=== PATIENT | female | born 1935 | race Caucasian/White ===

== ENCOUNTER 2017-05-28 10:51 | Inpatient (IN) ==
[2017-05-28] MEDS ORDERED: NS FLUSH BAG 500ml IV PRN (12:52)
[2017-05-28] MEDS: CEFTRIAXONE 1 G in NS 100 ML IV SCH (13:36)
[2017-05-28] MEDS: SALINE FLUSH 10ml SYRINGE IVF PRN (13:37)
--- OUTSIDE RECORDS SUMMARY | 2017-05-28 14:09 | External Medical Summary | Summary of Care ---
:1935 Author Name Jody Ward Address [address] Unavailable [place], [place] [id number] Care Team Providers Name Role Phone Amy Trinidad M.D. Unavailable Unavailable Jody Ward Unavailable Unavailable Eb Casillas M.D. Unavailable Unavailable Catalina Chand Unavailable Unavailable Unavailable Unavailable Unavailable Functional Status Functional Status Health Issues Name Dates Details Functional status health issues are not documented Status: Cognitive Status Health Issues Name Dates Details Cognitive status health issues are not documented Status: Problems Name Dates Details Osteoarthritis (715.90, M19.90) Status: Active Migraine headache (346.90, G43.909) Status: Active Essential hypertension (401.9, I10) Status: Active Lichen sclerosus et atrophicus (701.0, L90.0) Status: Active Allergic rhinitis (477.9, J30.9) Status: Active History of Desensitization to allergens (V07.1, Z51.89) Status: Resolved 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 Refills: 0 Trinidad M.D., Amy Start Active Fluticasone Propionate 50 MCG/ACT Nasal Suspension two (2)spray(s) into EACH nostrilin the evening Quantity: 1 Refills: 11 Trinidad M.D., Amy Start Active 16 GM Bottle Epidrin 325-65-100 MG CAPS TAKE DIRECTED. Refills: 0 Trinidad M.D., Amy Start Active Vitamins/Minerals Oral Tablet IRON, BETA CAROTENE, B-6, CALCIUM AND VITAMIN D Refills: 0 Trinidad M.D., Amy Start Active Gabapentin 100 MG Oral Capsule TAKE 1 CAPSULE 3 TIMES DAILY. Refills: 0 Amy Trinidad M.D. Start 03-Jul-2011 Active Senokot 8.6 MG Oral Tablet TAKE DIRECTED. Refills: 0 Amy Trinidad M.D. Start 03-Jul-2011 Active Pepcid 20 MG Oral Tablet TAKE 1 TABLET DAILY AT BEDTIME. Refills: 0 Amy Trinidad M.D. Start 03-Jul-2011 Active Ibuprofen TABS equate 500mg Refills: 0 Active Calcium + D 600-200 MG-UNIT TABS Refills: 0 Start 01-May-2012 Active Carvedilol 12.5 MG Oral Tablet Refills: 0 Start 01-May-2012 Active Clobetasol Propionate 0.05 % External Cream APPLY THIN LAYER TO AFFECTED AREAS TWICE DAILY Quantity: 1 Refills: 2 Danny Casillas M.D. Start 01-May-2012 Active 60 GM Tube First-Testosterone 2 % Transdermal Ointment Apply sparingly to affected area twice a day Quantity: 60 Refills: 0 Danny Casillas M.D. Start 17-Jul-2012 Active Omeprazole 40 MG Oral Capsule Delayed Release Refills: 0 Active Potassimin TABS Refills: 0 Active RaNITidine HCl TABS Refills: 0 Active Refresh SOLN Refills: 0 Active Advil 200 MG Oral Capsule Refills: 0 Start 31-Dec-2013 Active Minocycline HCl - 100 MG Oral Capsule Refills: 0 Start 31-Dec-2013 Active Pravastatin Sodium 20 MG Oral Tablet Refills: 0 Start 31-Dec-2013 Active B-6 100 MG Oral Tablet Refills: 0 Start 31-Dec-2013 Active Refresh Optive Sensitive 0.5-0.9 % Ophthalmic Solution Refills: 0 Start 31-Dec-2013 Active Olopatadine HCl - 0.6 % Nasal Solution 2 sprays each nostril twice a day- as needed. Quantity: 1 Refills: 5 Amy Trinidad M.D. Start 23-Jun-2015 Active 30.5 GM Bottle Clobetasol Propionate 0.05 % External Cream APPLY SPARINGLY TO AFFECTED AREA(S) TWICE DAILY Quantity: 1 Refills: 4 Lina P.Jody Garrett Start 11-Apr-2016 Active 30 GM Tube Hydrocortisone 1 % External Cream APPLY SPARINGLY TO AFFECTED AREA(S) ON FACE 1-2 TIMES DAILY NEEDED Quantity: 1 Refills: 3 Lina Leyva, Jody Start 11-Apr-2016 Active 15 GM Tube Allergies and Adverse Reactions Name Dates Details Ciprofloxacin HCl TABS (Allergy) Status: Active Iodine Solution SOLN (Allergy) Status: Active MetroNIDAZOLE CAPS (Allergy) Status: Active Quinine Derivatives (Allergy) Status: Active Zithromax PACK (Allergy) Status: Active Past Medical History Name Dates Details History of Breast neoplasm (239.3, D49.3) Status: Resolved History of Cough (786.2, R05) Status: Resolved History of Desensitization to allergens (V07.1, Z51.89) Status: Resolved Procedures Procedure Dates Details History of Hysterectomy Procedures not documented Immunization Name Dates Details Immunizations not documented Social History Name Dates Details - Status: Smoking Status Name Dates Details Former smoker Vital Signs Date Test Result Details No Known Vitals to report Results Date Description Value Details Results not documented Plan of Care Name Dates Details Planned Observations Planned Goals not documented Interventions Provided Medication ChangesClobetasol Propionate 0.05 % External Cream - Renew Instructions Name Dates Details Instructions not documented Encounters Appointment; Jody Mills P.A. On 11-Apr-2016 Encounter Diagnosis: Problem not documented 09:45 Appointment; Amy Trinidad M.D. On 20-May-2015 Encounter Diagnosis: Problem not documented 10:00
--- NOTE | 2017-05-28 14:13 | History & Physical Report ---
<Milena Love - Last Filed: 05/28/17 15:42> History of Present Illness Date: 05/28/17 Chief complaint: fever, abdominal pain, UTI HPI: Patient is an 82 y.o. female who is accepted as a direct admission from [facility] for fever, UTI, abdominal pain and weakness. She has had dysuria, dizziness and constipation over the past few weeks. Her symptoms worsened over the weekend with fever of 100.0 at home. Her labs in the office revealed elevated WBC and urine consistent with infection. She reports she was able to have a small BM last night and the night before she had wateryl, incontinent stools which resulted after using laxatives. She still has some abdominal pain . KUB xrays from 05/23 and 05/24 revealed no evidence of SBO. She was also running lower BP's when seen last week so her HCTZ has been held. She reports she is having more swelling in her feet. She currently states she is still having some abdominal "soreness" but it is better than it has been. She doesn't have much of an appetite. Notes she has dysuria and urinary frequency. Review of Systems All systems PM: 10-point ROS was reviewed, no additional remarkable complaints except - Constitutional Constitutional: Present: anorexia, fatigue, fever(s), headache(s) (yesterday - none today) - EENMT Eyes: Present: other (blind in R eye) - Gastrointestinal Gastrointestinal: Present: abdominal pain, constipation, nausea Gastrointestinal Comments: irritated hemorrhoids with bleeding due to recent constipation and diarrhea from laxatives. - Musculoskeletal Musculoskeletal: Present: back pain (L sided) - Neurological Neurological: Present: dizziness, weakness PFSH Medical History Breast cancer, Right breast - (lumpectomy 1994 followed by chemo) Rosacea, unspecified GERD without esophagitis OAB (overactive bladder) Vasculitis limited to skin Vaginal atrophy Colon polyps Migraine headache Hypertension Osteoarthritis Seborrheic dermatitis Traumatic blindness of right eye Surgical History: Hysterectomy 1980. R breast lumpectomy 1994. Colon polyps 2010. 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 Medications Home Medications Medication Instructions Recorded Confirmed Type Azelastine HCl 1 spray EA NOSTRIL HS #0 03/28/14 05/28/17 History Carvedilol 12.5 mg PO BIDWM #0 03/28/14 05/28/17 History Pyridoxine HCl (Vitamin B6) 100 mg PO DAILY #0 10/23/14 05/28/17 History [Vitamin B-6] Calcium 250 + D [Os Edward + D] 2 tab PO TID 04/07/17 05/28/17 History Clobetasol 0.05% Cream [TEMOVATE 1 applic TOP BID PRN 04/07/17 05/28/17 History Cream] Estradiol [Estrace] 1 applic VAGINAL 2XW 04/07/17 05/28/17 History Famotidine [Pepcid AC] 10 mg PO BID 04/07/17 05/28/17 History Fish Oil/Dha/Epa [Fish Oil 1,200 1,200 mg PO BIDWM 04/07/17 05/28/17 History mg Fish Oil] Hydrocortisone 1% Cream 1 applic TOP HS PRN 04/07/17 05/28/17 History [Cortizone-10 Cream] Lactobacillus Acidophilus 1 tab PO NOON 04/07/17 05/28/17 History [Probiotic Acidophilus] Minocycline [Minocin] 100 mg PO BID PRN 04/07/17 05/28/17 History Montelukast [Singulair] 10 mg PO HS 04/07/17 05/28/17 History Multivitamin [One Daily] 1 tab PO DAILY 04/07/17 05/28/17 History Omeprazole 40 mg PO ACB PRN 04/07/17 05/28/17 History Ondansetron Odt [Zofran Po] 4 mg PO Q4-6HR PRN 04/07/17 05/28/17 History Oxybutynin Chloride 5 mg PO DAILY 04/07/17 05/28/17 History Polyvinyl Alcohol/Povidone O/S 1 drop EACH EYE BID 04/07/17 05/28/17 History [Refresh Classic] Vit A/Vit C/Vit E/Zinc/Copper 1 tab PO BID 04/07/17 05/28/17 History [Preservision Areds Tablet] Advil (Ibuprofen) 200 mg tablet 200 mg PO BID PRN #0 tab 05/23/17 05/28/17 History Allergies Allergy/AdvReac Type Severity Reaction Status Date / Time azithromycin Allergy Unknown Verified 05/28/17 12:26 ciprofloxacin Allergy Unknown Verified 05/28/17 12:26 Iodinated Contrast- Oral and Allergy Unknown Verified 05/28/17 12:26 IV Dye metronidazole Allergy Unknown Verified 05/28/17 12:26 quinine Allergy Unknown Verified 05/28/17 12:26 Exam Vital Signs: Temperature 98.0 F 05/28/17 12:02 Pulse Rate 87 05/28/17 12:02 Respiratory Rate 20 05/28/17 12:02 Blood Pressure 161/80 H 05/28/17 12:02 Pulse Oximetry 96 05/28/17 12:02 Height/Weight/BMI: Height 1.73 m Weight 68 kg Body Mass Index 22.8 - Constitutional Present: no acute distress, well nourished, well developed, cooperative - Routine HEENT Exam Head: Present: normocephalic, atraumatic Eye: Absent: PERRL (R eye with scarring secondary to childhood inury) ENT: Present: mucous membranes moist. Absent: dentition normal (edentulous) - Routine Neck Exam Present: supple. Absent: thyromegaly - Routine Respiratory Exam Present: CTA bilaterally. Absent: wheezes - Routine Cardiovascular Exam Present: RRR, S1, S2, murmur (Grade 1) - Routine Abdominal Exam Present: soft, normoactive bowel sounds, tenderness (suprapubic and L lateral abdomen moderately tender, mild diffuse tenderness), non distended. Absent: guarding, rigid Comments: rotund - Routine Extremities Exam Present: edema, normal capillary refill - Routine Skin Exam Present: dry, warm - Routine Neurological Exam Present: alert, oriented X3, CN II-XII intact - Routine Psychiatric Exam Present: normal affect Results - Labs CBC & Chem 7: 05/28/17 13:01 05/28/17 13:01 Labs: Laboratory Tests 05/28/17 05/28/17 13:01 13:01 AST 37 H ALT 55 H Plasma Lactate 1.1 Procalcitonin 0.14 Laboratory Tests 05/28/17 13:06 Urine Clarity Sl cloudy Urine pH 8.0 Ur Specific [place] 1.015 Urine Protein 2+ A Urine Glucose (UA) Negative Urine Ketones Negative Urine Occult Blood 2+ A Urine Nitrate Negative Urine Bilirubin Negative Urine Urobilinogen 0.2 Ur Leukocyte Esterase 3+ A Urine RBC 1-3 Urine WBC Tntc H Urine WBC Clumps Many H Ur Squamous Epith Cells 0-5 Urine Bacteria 2+ H Microbiology Results: Microbiology 05/28/17 13:06 Urine, Voided (Cc/notcc) Urine Culture - Preliminary Culture Initiated - Results Pending 05/28/17 13:01 Peripheral/Iv Start Blood Culture - Preliminary Culture Initiated - Results Pending 05/28/17 13:06 Peripheral/Iv Start Blood Culture - Preliminary Culture Initiated - Results Pending - Imaging and Cardiology KUB xray Additional comments: 05/28 mild colonic gas and stool with a nonobstructive bowel gas pattern 05/24- nonobstructive nonspecific bowel gas pattern. Moderate stool in colon. Assessment and Plan (1) Pyelonephritis Current visit: Yes Status: Acute DVT Prophylaxis: SCD's GI Prophylaxis: Pepcid, other (omeprazole - pt's home med) Resuscitation Status: Do Not Resuscitate Assessment and Plan: Impression Pyelonephritis vs febrile cystitis Leukocytosis Hypokalemia Vasculitis - on prednisone 2.5mg qd. Mild transaminitis Hemorrhoids/anal irritation Constipation with abdominal pain - no evidence of SBO at this time Breast cancer, Right breast - (lumpectomy 1994 followed by chemo) Rosacea, unspecified GERD without esophagitis OAB (overactive bladder) Vaginal atrophy Colon polyps Migraine headache Hypertension Osteoarthritis Seborrheic dermatitis Traumatic blindness of right eye Plan Admit to observation under hospitalist service, Dr. Burnett attending. CBC, CMP, lactate, procalcitonin,UA and culture, blood culture x 2. CT renal stone protocol to r/o nephro/ureterolithiasis Rocephin 1 gm IV q 24 hours for infection - await urine C&S results and adjust antibiotic therapy as needed IVF's for hydration and maintenance and to replace potassium. Morphine IV PRN pain and Zofran 4mg PRN nausea Potassium x 1 for hypokalemia. Repeat BMP in am. Anusol for hemorrhoidal irritation. MOM PRN, daily Miralax and senna for bowel motivation Follow BP's. HCTZ is on hold. Hold statin given elevated liver enzymes. Continue regular home meds for chronic health problems. SCD's for DVT prophylaxis. Pt requests DNR code status. Care to return to [facility] on discharge. Hospital Course Summary Disclaimer: The visit summary below is not to be considered part of the above Progress Note. Hospital Course: 05/28/17 15:59 Impression Pyelonephritis vs febrile cystitis Leukocytosis Hypokalemia Vasculitis - on prednisone 2.5mg qd. Mild transaminitis Hemorrhoids/anal irritation Constipation with abdominal pain - no evidence of SBO at this time Breast cancer, Right breast - (lumpectomy 1994 followed by chemo) Rosacea, unspecified GERD without esophagitis OAB (overactive bladder) Vaginal atrophy Colon polyps Migraine headache Hypertension Osteoarthritis Seborrheic dermatitis Traumatic blindness of right eye Plan Admit to observation under hospitalist service, Dr. Burnett attending. CBC, CMP, lactate, procalcitonin,UA and culture, blood culture x 2. CT renal stone protocol to r/o nephro/ureterolithiasis Rocephin 1 gm IV q 24 hours for infection - await urine C&S results and adjust antibiotic therapy as needed IVF's for hydration and maintenance and to replace potassium. Morphine IV PRN pain and Zofran 4mg PRN nausea Potassium x 1 for hypokalemia. Repeat BMP in am. Anusol for hemorrhoidal irritation. MOM PRN, daily Miralax and senna for bowel motivation Follow BP's. HCTZ is on hold. Hold statin given elevated liver enzymes. Continue regular home meds for chronic health problems. SCD's for DVT prophylaxis. Pt requests DNR code status. Care to return to [facility] on discharge. <Clari Burnett - Last Filed: 05/28/17 17:54> History of Present Illness Date: 05/28/17 [facility] Patient Stated Medical History Migraine Yes Cataracts Yes: LEFT CAT. REMOVAL Other HEENT Yes: UNABLE TO SEE OUT OF RIGHT EYE Hypertension Yes Pneumonia Yes Sleep Apnea No Gastroesophageal Reflux Yes Disease Other GI Yes: colon polyps Hx Urinary Tract Infection Yes Other Yes: overactive bladder Osteoarthritis Yes Shingles Yes Post Menopausal Yes Clinic Medical History (Last Updated 04/25/17 @ 08:41 by PETRA Lincoln) Rosacea, unspecified (Chronic Medical) GERD without esophagitis (Chronic Medical) OAB (overactive bladder) (Chronic Medical) Vasculitis limited to skin (Chronic Medical) Vaginal atrophy (Chronic Medical) Rhinitis (Chronic Medical) Colon polyps (Chronic Medical) Hx of onychomycosis (Chronic Medical) Profound, moderate or severe vision impairment, not further specified (Chronic Medical) Right eye blind Migraine headache (Chronic Medical) Hypertension (Chronic Medical) Osteoarthritis (Chronic Medical) Seborrheic dermatitis (Chronic Medical) Traumatic blindness of right eye (Chronic Medical) Family History: Family History (Last Updated 04/25/17 @ 08:43 by PETRA Lincoln) Father , age 67 brain tumor Brain tumor Mother , age 83 [place] Myocardial infarction Sister Hypertension Sister , 76 Pneumonia Exam Vital Signs: Temperature 98.0 F 05/28/17 12:02 Pulse Rate 87 05/28/17 12:02 Respiratory Rate 20 05/28/17 12:02 Blood Pressure 161/80 H 05/28/17 12:02 Pulse Oximetry 96 05/28/17 12:02 Height/Weight/BMI: Height 1.73 m Weight 68 kg Body Mass Index 22.8 Results - Labs CBC & Chem 7: 05/28/17 13:01 05/28/17 13:01 Microbiology Results: Microbiology 05/28/17 13:06 Urine, Voided (Cc/notcc) Urine Culture - Preliminary Culture Initiated - Results Pending 05/28/17 13:01 Peripheral/Iv Start Blood Culture - Preliminary Culture Initiated - Results Pending 05/28/17 13:06 Peripheral/Iv Start Blood Culture - Preliminary Culture Initiated - Results Pending Assessment and Plan (1) Pyelonephritis Current visit: Yes Status: Acute Assessment and Plan: 05/28/2017-I reviewed this chart, the patient history, and the [employer]'s/PA's documented findings as above. We discussed and formulated the assessment and plan as above with the additions below.-Dr. Burnett The patient was seen today accompanied by her . She states she's felt poorly for about a week or 2. She complains of pain in the middle of her back and complains of abdominal pain. She also complains of nausea and some mild headache. Appetite has been poor. She denies any shortness of breath or chest pain. She was recently treated for constipation but was not feeling any better. On exam she is alert and in no acute distress. She's had trauma to the right eye in the remote past. Oropharynx is moist. Neck is supple. Chest is clear to auscultation. Cardiovascular reveals a regular rate and rhythm without murmur S3 or S4. Abdomen is soft and mildly protuberant. Bowel sounds are normoactive. She has mild distention with mild tympany in the upper abdomen. She has tenderness over her bladder and in the left mid to lower abdomen. Back exam reveals CVA tenderness on the left. Extremities are free of edema. Lab was reviewed above which appears to show UTI and elevated white count. CT renal shows no stones. There is some questionable left mild perinephric stranding, possibly related to pyelonephritis. KUB done today as an outpatient prior to admission showed mild colonic gas and stool with a nonobstructive bowel gas pattern. On my read, she still appears to have at least a moderate amount of stool. Impression UTI/left pyelonephritis Constipation Nausea Hypertension History of vasculitis on chronic steroids Mild hypokalemia Plan Rocephin 1 g IV daily for UTI/pyelonephritis. Await urine and blood cultures. MiraLAX for constipation. Check for rectal impaction. Anti-emetics as needed. Monitor blood pressure closely, vitals every 4 hours. Hospital Course Summary Disclaimer: The visit summary below is not to be considered part of the above Progress Note.
[2017-05-28] MEDS ORDERED: KCL IV SCH (14:15)
[2017-05-28] MEDS ORDERED: NS IV SCH (14:15)
[2017-05-28] MEDS ORDERED: POTASSIUM CHLORIDE IV SCH (14:15)
[2017-05-28] MEDS: NS with KCL 20 mEq 1,000 ML IV SCH (14:33)
[2017-05-28] MEDS ORDERED: MORPHINE SULFATE 2mg INJECTION IVP PRN (15:12)
[2017-05-28] MEDS ORDERED: OMEPRAZOLE 40 MG PO PRN (15:42)
[2017-05-28] MEDS ORDERED: ASPIRIN PO PRN (15:42)
[2017-05-28] MEDS ORDERED: CAFFEINE PO PRN (15:42)
[2017-05-28] MEDS ORDERED: IBUPROFEN 200 MG TABLET PO PRN (15:42)
[2017-05-28] MEDS ORDERED: MINOCYCLINE 100 MG PO PRN (15:42)
[2017-05-28] MEDS ORDERED: BUTALBITAL PO PRN (15:42)
[2017-05-28] MEDS ORDERED: ONDANSETRON 4 MG PO PRN (15:42)
[2017-05-28] MEDS ORDERED: CLOBETASOL 0.05% TOP PRN (15:42)
[2017-05-28] MEDS ORDERED: HYDROCORTISONE 1% CREAM 28.35gm TOP PRN (15:42)
--- NOTE | 2017-05-28 16:09 | CT Scan Report ---
EXAM: CT renal wo con (stone marisa) DATE: 05/28/2017 12:00 AM ENCOUNTER: Initial INDICATION: pyelonephritis, L flank/abd pain -evaluate for stone COMPARISON: 06/07/2015 TECHNIQUE: Noncontrast axial CT images were obtained of the abdomen and pelvis. Coronal and sagittal reformatted images were performed. The current CT scan was performed using radiation dose-reduction techniques. FINDINGS: Lower Chest: The visualized portions of the lower lungs are aerated. No focal airspace disease. The heart is normal in size without pericardial effusion. Abdomen: No intraperitoneal free air. No intra-abdominal free fluid or fluid collections. No lymphadenopathy. Liver: The noncontrast liver demonstrates homogeneous attenuation without focal masses. Gallbladder and biliary: The gallbladder appears grossly normal. No biliary ductal dilatation. Spleen: The noncontrast spleen appears grossly normal. Pancreas: The pancreas demonstrates homogeneous attenuation. Adrenal glands: The adrenal glands are normal in size and attenuation. Kidneys/ureters: Mild asymmetric prominence of the left renal collecting system, pelvis, and ureter without renal or ureteral stones identified. Suggestion of mild left perinephric/periureteral stranding. The noncontrast kidneys appear otherwise grossly normal. The right ureter is normal in course and caliber. GI tract: Small hiatal hernia. The stomach appears otherwise normal. The small bowel and colon appear grossly normal. The appendix is normal in caliber. Vascular structures: The aorta is normal in course and caliber with aortoiliac atherosclerotic calcifications noted. Pelvis: No pelvic free fluid. No pelvic lymphadenopathy. Bladder: The bladder appears normal. Genital system: The uterus is surgically absent. No adnexal masses seen. Skeletal Structures and Soft Tissues: No acute osseous or soft tissue abnormality identified. Degenerative spondylosis of the visualized spine. Impression: 1. No renal or ureteral stones identified. 2. There is suggestion of mild asymmetric prominence of the left renal collecting system, pelvis, and ureter with mild left perinephric/periureteral stranding noted raising consideration for ascending urinary tract infection, although pyelonephritis cannot be determined by CT without intravenous contrast. .
[2017-05-28] MEDS: HYDROCODONE/APAP 5mg/325mg TABLET PO PRN ×2 (17:53→23:50)
[2017-05-28] MEDS: ONDANSETRON 4 MG/2 ML INJECTION IVP PRN (17:54)
[2017-05-28] MEDS: HYDROCORTISONE 2.5% CREAM 30gm TOP SCH ×3 (18:26→22:14)
[2017-05-28] MEDS: (Fish Oil/Dha/Epa [Fish Oil 1,200 Mg Fish Oil] PO SCH (18:27)
[2017-05-28] MEDS: CARVEDILOL 12.5 MG PO SCH (18:27)
[2017-05-28] MEDS: VIT D PO SCH (20:09)
[2017-05-28] MEDS: CALCIUM PO SCH (20:09)
[2017-05-28] MEDS: REFRESH CLASSIC Eye Drops 0.4ml EACH EYE SCH (20:11)
[2017-05-28] MEDS: FAMOTIDINE 10 MG PO SCH (20:11)
[2017-05-28] MEDS: POLYETHYL GLYCOL 3350 17gm PACKET PO SCH (20:12)
[2017-05-28] MEDS: BISACODYL 10 MG SUPPOSITORY RECTALLY SCH (20:12)
[2017-05-28] MEDS ORDERED: MONTELUKAST 10 MG PO SCH (21:00)
[2017-05-28] MEDS ORDERED: AMLODIPINE 10 MG PO SCH (21:00)
[2017-05-28] MEDS ORDERED: AZELASTINE 0.1% EA NOSTRIL SCH (21:00)
[2017-05-29] MEDS: NS with KCL 20 mEq 1,000 ML IV SCH ×2 (01:15→14:44)
[2017-05-29] MEDS: HYDROCODONE/APAP 5mg/325mg TABLET PO PRN ×2 (05:57→19:34)
[2017-05-29 07:22] VITALS: BMI 22.6
[2017-05-29] MEDS ORDERED: PREDNISONE 5 MG PO SCH (08:00)
[2017-05-29] MEDS: CARVEDILOL 12.5 MG PO SCH (08:38)
[2017-05-29] MEDS: (Fish Oil/Dha/Epa [Fish Oil 1,200 Mg Fish Oil] PO SCH (08:39)
[2017-05-29] MEDS: FAMOTIDINE 10 MG PO SCH (08:40)
[2017-05-29] MEDS: VIT D PO SCH ×2 (08:40→15:26)
[2017-05-29] MEDS: CALCIUM PO SCH ×2 (08:40→15:26)
[2017-05-29] MEDS: POLYETHYL GLYCOL 3350 17gm PACKET PO SCH ×3 (08:41→21:31)
[2017-05-29] MEDS: REFRESH CLASSIC Eye Drops 0.4ml EACH EYE SCH ×2 (08:41→21:35)
[2017-05-29] MEDS ORDERED: PYRIDOXINE 100 MG PO SCH (09:00)
[2017-05-29] MEDS ORDERED: OXYBUTYNIN IR 5 MG PO SCH (09:00)
[2017-05-29] MEDS ORDERED: PredniSONE 2.5 MG TABLET PO SCH (09:00)
[2017-05-29] MEDS ORDERED: NON-FORMULARY MEDICATION 1 EACH EACH (Oxybutynin Chloride [Oxybutynin Chloride] 5 MG) PO SCH (09:00)
[2017-05-29] MEDS: SALINE FLUSH 10ml SYRINGE IVF PRN (09:22)
[2017-05-29] MEDS: BISACODYL 10 MG SUPPOSITORY RECTALLY SCH ×3 (09:22→21:30)
[2017-05-29] MEDS: HYDROCORTISONE 2.5% CREAM 30gm TOP SCH ×3 (11:09→21:31)
[2017-05-29] MEDS: CEFTRIAXONE 1 G in NS 100 ML IV SCH (12:31)
[2017-05-29] MEDS: LACTOBACILLUS (15B cfu) CAPSULE PO SCH (13:00)
[2017-05-29] MEDS ORDERED: MINOCYCLINE 100 MG CAPSULE PO PRN (15:59)
[2017-05-29] MEDS ORDERED: OMEPRAZOLE 40 MG PO PRN (16:07)
[2017-05-29] MEDS ORDERED: ONDANSETRON ODT 4 MG TABLET PO PRN (16:09)
--- NOTE | 2017-05-29 17:06 | Progress Note ---
Subjective: Patient is seen today accompanied by her . She states overall she is feeling a little better. Appetite has improved. She has had some small hard bowel movements but still feels constipated. She still has dysuria, but states it's better. She denies any chest pain or shortness of breath. She denies any abdominal pain. Objective Vital signs: Temperature 97.5 F 05/29/17 15:28 Pulse Rate 65 05/29/17 15:28 Respiratory Rate 18 05/29/17 15:28 Blood Pressure 124/69 05/29/17 15:28 Pulse Oximetry 96 05/29/17 15:28 Height/Weight/BMI: Height 1.73 m Weight 68.3 kg Body Mass Index 22.6 Comments: The patient had hypoxia with O2 sat of 89% on room air. She is now off of supplemental oxygen. GEN-alert, oriented, no acute distress CV-regular rate and rhythm CHEST-clear to auscultation bilaterally Back-no CVA tenderness on the left or the right ABD-soft, nontender, mildly distended, mildly tympanitic, normal bowel sounds -no Le EXT-no edema NEURO-no focal deficits SKIN-warm and dry and without rashes Results - Labs CBC & Chem 7: 05/29/17 06:19 05/29/17 05:24 Labs: Bands 6, neutrophils 46 Microbiology Results: Microbiology 05/28/17 13:01 Peripheral/Iv Start Blood Culture - Preliminary No Growth After 1 Day 05/28/17 13:06 Peripheral/Iv Start Blood Culture - Preliminary No Growth After 1 Day 05/28/17 13:06 Urine, Voided (Cc/notcc) Urine Culture - Preliminary Escherichia coli Assessment and Plan (1) Pyelonephritis Current visit: Yes Status: Acute Assessment and Plan: 05/29/2017 Impression UTI/left pyelonephritis-CVA tenderness is gone today Leukocytosis has resolved Constipation Nausea-improved Hypertension -well controlled Hypoxia-improved History of vasculitis on chronic steroids Mild hypokalemia-improved Plan Currently on day 2 of Rocephin. Escherichia coli in urine. Sensitivities pending. Blood cultures negative after 24 hours. Recheck CBC and basic metabolic profile tomorrow. Await urine culture results. Increase MiraLAX for constipation. Continue Dulcolax suppositories Change to inpatient status secondary to hypoxemia and urinary tract infection with pyelonephritis. Hospital Course Summary Disclaimer: The visit summary below is not to be considered part of the above Progress Note. Hospital Course: 05/28/17 15:59 Impression Pyelonephritis vs febrile cystitis Leukocytosis Hypokalemia Vasculitis - on prednisone 2.5mg qd. Mild transaminitis Hemorrhoids/anal irritation Constipation with abdominal pain - no evidence of SBO at this time Breast cancer, Right breast - (lumpectomy 1994 followed by chemo) Rosacea, unspecified GERD without esophagitis OAB (overactive bladder) Vaginal atrophy Colon polyps Migraine headache Hypertension Osteoarthritis Seborrheic dermatitis Traumatic blindness of right eye Plan Admit to observation under hospitalist service, Dr. Burnett attending. CBC, CMP, lactate, procalcitonin,UA and culture, blood culture x 2. CT renal stone protocol to r/o nephro/ureterolithiasis Rocephin 1 gm IV q 24 hours for infection - await urine C&S results and adjust antibiotic therapy as needed IVF's for hydration and maintenance and to replace potassium. Morphine IV PRN pain and Zofran 4mg PRN nausea Potassium x 1 for hypokalemia. Repeat BMP in am. Anusol for hemorrhoidal irritation. MOM PRN, daily Miralax and senna for bowel motivation Follow BP's. HCTZ is on hold. Hold statin given elevated liver enzymes. Continue regular home meds for chronic health problems. SCD's for DVT prophylaxis. Pt requests DNR code status. Care to return to Madie Sampson APRN on discharge. 05/28/2017-I reviewed this chart, the patient history, and the [employer]'s/PA's documented findings as above. We discussed and formulated the assessment and plan as above with the additions below.-Dr. Burnett The patient was seen today accompanied by her . She states she's felt poorly for about a week or 2. She complains of pain in the middle of her back and complains of abdominal pain. She also complains of nausea and some mild headache. Appetite has been poor. She denies any shortness of breath or chest pain. She was recently treated for constipation but was not feeling any better. On exam she is alert and in no acute distress. She's had trauma to the right eye in the remote past. Oropharynx is moist. Neck is supple. Chest is clear to auscultation. Cardiovascular reveals a regular rate and rhythm without murmur S3 or S4. Abdomen is soft and mildly protuberant. Bowel sounds are normoactive. She has mild distention with mild tympany in the upper abdomen. She has tenderness over her bladder and in the left mid to lower abdomen. Back exam reveals CVA tenderness on the left. Extremities are free of edema. Lab was reviewed above which appears to show UTI and elevated white count. CT renal shows no stones. There is some questionable left mild perinephric stranding, possibly related to pyelonephritis. KUB done today as an outpatient prior to admission showed mild colonic gas and stool with a nonobstructive bowel gas pattern. On my read, she still appears to have at least a moderate amount of stool. Impression UTI/left pyelonephritis Constipation Nausea Hypertension History of vasculitis on chronic steroids Mild hypokalemia Plan Rocephin 1 g IV daily for UTI/pyelonephritis. Await urine and blood cultures. MiraLAX for constipation. Check for rectal impaction. Anti-emetics as needed. Monitor blood pressure closely, vitals every 4 hours.
[2017-05-29] MEDS: CARVEDILOL 12.5 MG TABLET PO SCH (17:19)
[2017-05-29] MEDS: OMEGA-3 ACID ESTERS 1 GM CAPSULE PO SCH (17:19)
[2017-05-29] MEDS ORDERED: ESTRADIOL 0.01% VAGINAL SCH (21:00)
[2017-05-29] MEDS ORDERED: AMLODIPINE 10 MG TABLET PO SCH (21:00)
[2017-05-29] MEDS ORDERED: ESTRADIOL 0.01% VAGINAL CREAM 42.5gm VAGINAL SCH (21:00)
[2017-05-29] MEDS: AZELASTINE 0.1% NASAL SPRAY EA NOSTRIL SCH (21:26)
[2017-05-29] MEDS: CALCIUM 250 + VIT D 125 TABLET PO SCH (21:26)
[2017-05-29] MEDS: FAMOTIDINE 20 MG TABLET PO SCH (21:26)
[2017-05-29] MEDS: AMLODIPINE 10 MG TABLET PO SCH (21:30)
[2017-05-29] MEDS: MONTELUKAST 10 MG TABLET PO SCH (21:30)
[2017-05-30] MEDS: HYDROCODONE/APAP 5mg/325mg TABLET PO PRN ×2 (05:26→21:15)
[2017-05-30] MEDS: ONDANSETRON 4 MG/2 ML INJECTION IVP PRN (08:51)
[2017-05-30] MEDS ORDERED: PROCHLORPERAZINE 10 MG/2 ML INJECTION IVP PRN (10:10)
[2017-05-30] MEDS: CARVEDILOL 12.5 MG TABLET PO SCH ×2 (11:44→18:38)
[2017-05-30] MEDS: PredniSONE 5 MG TABLET PO SCH (11:44)
[2017-05-30] MEDS: OMEGA-3 ACID ESTERS 1 GM CAPSULE PO SCH ×2 (11:44→18:38)
[2017-05-30] MEDS: BISACODYL 10 MG SUPPOSITORY RECTALLY SCH ×3 (11:45→21:16)
[2017-05-30] MEDS: CALCIUM 250 + VIT D 125 TABLET PO SCH ×3 (11:45→21:06)
[2017-05-30] MEDS: HYDROCORTISONE 2.5% CREAM 30gm TOP SCH ×3 (11:46→21:17)
[2017-05-30] MEDS: FAMOTIDINE 20 MG TABLET PO SCH ×2 (11:46→21:06)
[2017-05-30] MEDS: PYRIDOXINE 100mg TABLET PO SCH (11:47)
[2017-05-30] MEDS: REFRESH CLASSIC Eye Drops 0.4ml EACH EYE SCH ×2 (11:47→21:06)
[2017-05-30] MEDS: POLYETHYL GLYCOL 3350 17gm PACKET PO SCH ×3 (11:47→21:07)
[2017-05-30] MEDS: LACTOBACILLUS (15B cfu) CAPSULE PO SCH (11:48)
[2017-05-30] MEDS: SALINE FLUSH 10ml SYRINGE IVF PRN (13:08)
[2017-05-30] MEDS: CEFTRIAXONE 1 G in NS 100 ML IV SCH (13:08)
--- NOTE | 2017-05-30 14:35 | Progress Note ---
Subjective: F/U: UTI/Pyelonephritis with Ecoli Rough morning-felt very full and nauseated to abdomen. Oral drive decreased, no able to get medications in. Feels stools slow-some output, but still very constipated. Notes f/c off and on. Still having flank pain. Strength decreased. Is breathing well-not feeling SOA or congested. Objective Vital signs: Temperature 97.3 F 05/30/17 12:00 Pulse Rate 67 05/30/17 12:00 Respiratory Rate 18 05/30/17 12:00 Blood Pressure 131/70 05/30/17 12:00 Pulse Oximetry 97 05/30/17 12:00 Height/Weight/BMI: Height 1.73 m Weight 68.5 kg Body Mass Index 22.6 - Constitutional Present: well nourished, well developed, cooperative - Routine HEENT Exam Head: Present: normocephalic, atraumatic Eye: Absent: PERRL (Blind in right eye ), conjunctival icterus ENT: Present: mucous membranes moist - Routine Respiratory Exam Present: CTA bilaterally. Absent: rales, respiratory distress, rhonchi, wheezes - Routine Cardiovascular Exam Present: RRR, no murmur - Routine Abdominal Exam Present: soft, non tender, distended. Absent: normoactive bowel sounds, guarding - Routine Extremities Exam Present: no edema. Absent: cyanosis, clubbing Comments: SCD in place - Routine Musculoskeletal Exam Musculoskeletal: Present: no clubbing or cyanosis - Routine Skin Exam Present: dry, warm - Routine Neurological Exam Present: alert, oriented X3, CN II-XII intact, moving all extremities, vision grossly intact, hearing grossly intact. Absent: motor deficit - Routine Psychiatric Exam Present: normal affect, normal thought process, cooperative Results - Labs CBC & Chem 7: 05/30/17 04:41 05/30/17 04:41 Microbiology Results: Microbiology 05/28/17 13:01 Peripheral/Iv Start Blood Culture - Preliminary No Growth After 2 Days 05/28/17 13:06 Peripheral/Iv Start Blood Culture - Preliminary No Growth After 2 Days 05/28/17 13:06 Urine, Voided (Cc/notcc) Urine Culture - Final Escherichia coli Assessment and Plan (1) Pyelonephritis Current visit: Yes Status: Acute DVT Prophylaxis: SCD's Resuscitation Status: Do Not Resuscitate Assessment and Plan: Impression UTI/left pyelonephritis secondary to Ecoli Leukocytosis (POA) Constipation Nausea Hypertension -well controlled Hypoxia-improved Elevated liver enzymes History of vasculitis on chronic steroids Hypokalemia (POA) - improved Osteoarthritis GERD without esophagitis OAB (overactive bladder) Plan Continue Rocephin for urinary coverage of Ecoli - day #3. Consult PT/OT to help improve functional status. Compazine added for nausea. Continue with bowel motivation. Add routine Senna plus at night and prn MOM. Time spent with patient care 25 minutes. Hospital Course Summary Disclaimer: The visit summary below is not to be considered part of the above Progress Note. Hospital Course: 05/28/17 Impression Pyelonephritis vs febrile cystitis Leukocytosis Hypokalemia Vasculitis - on prednisone 2.5mg qd. Mild transaminitis Hemorrhoids/anal irritation Constipation with abdominal pain - no evidence of SBO at this time Breast cancer, Right breast - (lumpectomy 1994 followed by chemo) Rosacea, unspecified GERD without esophagitis OAB (overactive bladder) Vaginal atrophy Colon polyps Migraine headache Hypertension Osteoarthritis Seborrheic dermatitis Traumatic blindness of right eye Plan Admit to observation under hospitalist service, Dr. Burnett attending. CBC, CMP, lactate, procalcitonin,UA and culture, blood culture x 2. CT renal stone protocol to r/o nephro/ureterolithiasis Rocephin 1 gm IV q 24 hours for infection - await urine C&S results and adjust antibiotic therapy as needed IVF's for hydration and maintenance and to replace potassium. Morphine IV PRN pain and Zofran 4mg PRN nausea Potassium x 1 for hypokalemia. Repeat BMP in am. Anusol for hemorrhoidal irritation. MOM PRN, daily Miralax and senna for bowel motivation Follow BP's. HCTZ is on hold. Hold statin given elevated liver enzymes. Continue regular home meds for chronic health problems. SCD's for DVT prophylaxis. Pt requests DNR code status. Care to return to Madie Sampson APRN on discharge. 05/29/17 Currently on day 2 of Rocephin. Escherichia coli in urine. Sensitivities pending. Blood cultures negative after 24 hours. Recheck CBC and basic metabolic profile tomorrow. Await urine culture results. Increase MiraLAX for constipation. Continue Dulcolax suppositories Change to inpatient status secondary to hypoxemia and urinary tract infection with pyelonephritis. 05/30/17 Continue Rocephin for urinary coverage of Ecoli - Day #3. Consult PT/OT to help improve functional status. Compazine added for nausea. Continue with bowel motivation. Add routine Senna plus at night and prn MOM.
[2017-05-30] MEDS: MONTELUKAST 10 MG TABLET PO SCH (21:06)
[2017-05-30] MEDS: SENNA + DOCUSATE TABLET PO SCH (21:06)
[2017-05-30] MEDS: CLOBETASOL 0.05% CREAM 15gm TOP PRN (21:07)
[2017-05-30] MEDS: AZELASTINE 0.1% NASAL SPRAY EA NOSTRIL SCH (21:07)
[2017-05-30] MEDS: AMLODIPINE 10 MG TABLET PO SCH (21:07)
[2017-05-31] MEDS: SALINE FLUSH 10ml SYRINGE IVF PRN ×2 (04:35→21:23)
[2017-05-31] MEDS: REFRESH CLASSIC Eye Drops 0.4ml EACH EYE SCH ×2 (09:04→21:14)
[2017-05-31] MEDS: OMEGA-3 ACID ESTERS 1 GM CAPSULE PO SCH ×2 (09:04→17:56)
[2017-05-31] MEDS: PYRIDOXINE 100mg TABLET PO SCH (09:04)
[2017-05-31] MEDS: CALCIUM 250 + VIT D 125 TABLET PO SCH ×3 (09:04→21:10)
[2017-05-31] MEDS: PredniSONE 5 MG TABLET PO SCH (09:05)
[2017-05-31] MEDS: BISACODYL 10 MG SUPPOSITORY RECTALLY SCH (09:05)
[2017-05-31] MEDS: FAMOTIDINE 20 MG TABLET PO SCH ×2 (09:05→21:13)
[2017-05-31] MEDS: CARVEDILOL 12.5 MG TABLET PO SCH ×2 (09:05→17:56)
[2017-05-31] MEDS: POLYETHYL GLYCOL 3350 17gm PACKET PO SCH ×3 (09:06→21:14)
[2017-05-31] MEDS: HYDROCORTISONE 2.5% CREAM 30gm TOP SCH ×3 (09:07→21:15)
--- NOTE | 2017-05-31 10:56 | Progress Note ---
Subjective: F/U: UTI/Pyelonephritis with Ecoli Better morning today-not feeling the nausea like yesterday. Bowels are starting to move. Noted slight ab pain. Breathing well-no congestion or SOA. No chest pressure or pain. Worked with therapy today and felt she did well. Objective Vital signs: Temperature 98.1 F 05/31/17 08:15 Pulse Rate 87 05/31/17 08:15 Respiratory Rate 16 05/31/17 08:15 Blood Pressure 133/77 05/31/17 08:15 Pulse Oximetry 95 05/31/17 08:49 Height/Weight/BMI: Height 1.73 m Weight 68.5 kg Body Mass Index 22.6 - Constitutional Present: well nourished, well developed - Routine HEENT Exam Head: Present: normocephalic, atraumatic Eye: Present: EOMI ENT: Present: mucous membranes moist - Routine Respiratory Exam Present: CTA bilaterally. Absent: respiratory distress, rhonchi, wheezes - Routine Cardiovascular Exam Present: RRR, no murmur - Routine Abdominal Exam Present: soft, normoactive bowel sounds, non tender, distended (Less distended than yesterday ). Absent: rebound, guarding - Routine Extremities Exam Present: no edema. Absent: cyanosis, clubbing Comments: SCD in place - Routine Musculoskeletal Exam Musculoskeletal: Present: no clubbing or cyanosis, normal strength - Routine Skin Exam Present: intact, dry, warm - Routine Neurological Exam Present: alert, oriented X3, CN II-XII intact, moving all extremities, hearing grossly intact. Absent: motor deficit - Routine Psychiatric Exam Present: normal affect, normal thought process, cooperative. Absent: anxious, agitated Results - Labs CBC & Chem 7: 05/31/17 04:06 05/31/17 04:06 Microbiology Results: Microbiology 05/28/17 13:01 Peripheral/Iv Start Blood Culture - Preliminary No Growth After 2 Days 05/28/17 13:06 Peripheral/Iv Start Blood Culture - Preliminary No Growth After 2 Days 05/28/17 13:06 Urine, Voided (Cc/notcc) Urine Culture - Final Escherichia coli Assessment and Plan (1) Pyelonephritis Current visit: Yes Status: Acute DVT Prophylaxis: SCD's Resuscitation Status: Do Not Resuscitate Assessment and Plan: Impression UTI/left pyelonephritis secondary to Ecoli Leukocytosis (POA) Constipation Nausea Hypertension -well controlled Hypoxia-improved Elevated liver enzymes History of vasculitis on chronic steroids Hypokalemia (POA) - improved Osteoarthritis GERD without esophagitis OAB (overactive bladder) Plan Continue Rocephin for urinary coverage of Ecoli - day #4. Did well with therapy - will have nursing ambulate TID to help strength. Bowel moving - will stop routine Dulcolax suppositories. Possible discharge tomorrow if continues to do well. Time spent with patient care 25 minutes. Hospital Course Summary Disclaimer: The visit summary below is not to be considered part of the above Progress Note. Hospital Course: 05/28/17 Impression Pyelonephritis vs febrile cystitis Leukocytosis Hypokalemia Vasculitis - on prednisone 2.5mg qd. Mild transaminitis Hemorrhoids/anal irritation Constipation with abdominal pain - no evidence of SBO at this time Breast cancer, Right breast - (lumpectomy 1994 followed by chemo) Rosacea, unspecified GERD without esophagitis OAB (overactive bladder) Vaginal atrophy Colon polyps Migraine headache Hypertension Osteoarthritis Seborrheic dermatitis Traumatic blindness of right eye Plan Admit to observation under hospitalist service, Dr. Burnett attending. CBC, CMP, lactate, procalcitonin,UA and culture, blood culture x 2. CT renal stone protocol to r/o nephro/ureterolithiasis Rocephin 1 gm IV q 24 hours for infection - await urine C&S results and adjust antibiotic therapy as needed IVF's for hydration and maintenance and to replace potassium. Morphine IV PRN pain and Zofran 4mg PRN nausea Potassium x 1 for hypokalemia. Repeat BMP in am. Anusol for hemorrhoidal irritation. MOM PRN, daily Miralax and senna for bowel motivation Follow BP's. HCTZ is on hold. Hold statin given elevated liver enzymes. Continue regular home meds for chronic health problems. SCD's for DVT prophylaxis. Pt requests DNR code status. Care to return to [facility] Sampson APRN on discharge. 05/29/17 Currently on day 2 of Rocephin. Escherichia coli in urine. Sensitivities pending. Blood cultures negative after 24 hours. Recheck CBC and basic metabolic profile tomorrow. Await urine culture results. Increase MiraLAX for constipation. Continue Dulcolax suppositories Change to inpatient status secondary to hypoxemia and urinary tract infection with pyelonephritis. 05/30/17 Continue Rocephin for urinary coverage of Ecoli - Day #3. Consult PT/OT to help improve functional status. Compazine added for nausea. Continue with bowel motivation. Add routine Senna plus at night and prn MOM. 05/31/17 Continue Rocephin for urinary coverage of Ecoli - day #4. Did well with therapy - will have nursing ambulate TID to help strength. Bowel moving - will stop routine Dulcolax suppositories. Possible discharge tomorrow if continues to do well.
[2017-05-31] MEDS ORDERED: FALL RISK - PHARMACY CONSULT XX ONE (12:16)
[2017-05-31] MEDS: CEFTRIAXONE 1 G in NS 100 ML IV SCH (12:33)
[2017-05-31] MEDS: LACTOBACILLUS (15B cfu) CAPSULE PO SCH (12:33)
[2017-05-31] MEDS: AMLODIPINE 10 MG TABLET PO SCH (21:10)
[2017-05-31] MEDS: MONTELUKAST 10 MG TABLET PO SCH (21:13)
[2017-05-31] MEDS: SENNA + DOCUSATE TABLET PO SCH (21:13)
[2017-05-31] MEDS: AZELASTINE 0.1% NASAL SPRAY EA NOSTRIL SCH (21:14)
[2017-06-01] MEDS: HYDROCODONE/APAP 5mg/325mg TABLET PO PRN (00:45)
[2017-06-01] MEDS: SALINE FLUSH 10ml SYRINGE IVF PRN (06:37)
[2017-06-01] MEDS: REFRESH CLASSIC Eye Drops 0.4ml EACH EYE SCH (08:18)
[2017-06-01] MEDS: FAMOTIDINE 20 MG TABLET PO SCH (08:19)
[2017-06-01] MEDS: OMEGA-3 ACID ESTERS 1 GM CAPSULE PO SCH (08:19)
[2017-06-01] MEDS: PYRIDOXINE 100mg TABLET PO SCH (08:19)
[2017-06-01] MEDS: CALCIUM 250 + VIT D 125 TABLET PO SCH (08:19)
[2017-06-01] MEDS: PredniSONE 5 MG TABLET PO SCH (08:19)
[2017-06-01] MEDS: CARVEDILOL 12.5 MG TABLET PO SCH (08:19)
[2017-06-01] MEDS: CLOBETASOL 0.05% CREAM 15gm TOP PRN (08:20)
[2017-06-01] MEDS: HYDROCORTISONE 2.5% CREAM 30gm TOP SCH (08:20)
[2017-06-01] MEDS: POLYETHYL GLYCOL 3350 17gm PACKET PO SCH (08:21)
--- NOTE | 2017-06-01 11:11 | Progress Note ---
Subjective: F/U: UTI/Pyelonephritis with Ecoli Doing well this morning. No f/c. Eating well; did note slight nausea this am but had no emesis. Stools still feel slow. Breathing well. No chest pain. Strength improving. Objective Vital signs: Temperature 97.4 F 06/01/17 07:28 Pulse Rate 70 06/01/17 07:28 Respiratory Rate 18 06/01/17 07:28 Blood Pressure 132/76 06/01/17 07:28 Pulse Oximetry 92 06/01/17 07:28 Height/Weight/BMI: Height 1.73 m Weight 69.1 kg Body Mass Index 22.6 - Constitutional Present: no acute distress, well nourished, well developed, average body habitus , cooperative - Routine HEENT Exam Head: Present: normocephalic, atraumatic Eye: Present: EOMI. Absent: conjunctival icterus ENT: Present: mucous membranes moist - Routine Respiratory Exam Present: CTA bilaterally. Absent: rales, respiratory distress, rhonchi, wheezes , crackles - Routine Cardiovascular Exam Present: RRR, no murmur - Routine Abdominal Exam Present: soft, normoactive bowel sounds, non distended, non tender. Absent: rebound, guarding, rigid - Routine Extremities Exam Present: cyanosis, clubbing, no edema Comments: SCD in place - Routine Musculoskeletal Exam Musculoskeletal: Present: no clubbing or cyanosis, normal strength - Routine Skin Exam Present: dry, warm - Routine Neurological Exam Present: alert, oriented X3, CN II-XII intact, moving all extremities, vision grossly intact, hearing grossly intact. Absent: motor deficit, altered mental status - Routine Psychiatric Exam Present: normal affect, normal thought process, cooperative. Absent: anxious, agitated Results - Labs CBC & Chem 7: 06/01/17 04:15 06/01/17 04:15 Microbiology Results: Microbiology 05/28/17 13:01 Peripheral/Iv Start Blood Culture - Preliminary No Growth After 3 Days 05/28/17 13:06 Peripheral/Iv Start Blood Culture - Preliminary No Growth After 3 Days 05/28/17 13:06 Urine, Voided (Cc/notcc) Urine Culture - Final Escherichia coli Assessment and Plan (1) Pyelonephritis Current visit: Yes Status: Acute DVT Prophylaxis: SCD's Resuscitation Status: Do Not Resuscitate Assessment and Plan: Impression UTI/left pyelonephritis secondary to Ecoli Leukocytosis (POA) - resolved Constipation Nausea Hypertension -well controlled Hypoxia-improved Elevated liver enzymes History of vasculitis on chronic steroids Hypokalemia (POA) - improved Osteoarthritis GERD without esophagitis OAB (overactive bladder) Plan Will d/c to home after today's dose of Rocephin infused. Continue cephalexin for 9 more days due to pyelonephritis. Continue with bowel motivation. Encourage increasing activities at home. F/U with Madie Sampson in 1 week for reevaluation. See orders for details Case discussed with family and CM. Time spent with patient care and discharge 35 minutes. Hospital Course Summary Disclaimer: The visit summary below is not to be considered part of the above Progress Note. Hospital Course: 05/28/17 Impression Pyelonephritis vs febrile cystitis Leukocytosis Hypokalemia Vasculitis - on prednisone 2.5mg qd. Mild transaminitis Hemorrhoids/anal irritation Constipation with abdominal pain - no evidence of SBO at this time Breast cancer, Right breast - (lumpectomy 1994 followed by chemo) Rosacea, unspecified GERD without esophagitis OAB (overactive bladder) Vaginal atrophy Colon polyps Migraine headache Hypertension Osteoarthritis Seborrheic dermatitis Traumatic blindness of right eye Plan Admit to observation under hospitalist service, Dr. Burnett attending. CBC, CMP, lactate, procalcitonin,UA and culture, blood culture x 2. CT renal stone protocol to r/o nephro/ureterolithiasis Rocephin 1 gm IV q 24 hours for infection - await urine C&S results and adjust antibiotic therapy as needed IVF's for hydration and maintenance and to replace potassium. Morphine IV PRN pain and Zofran 4mg PRN nausea Potassium x 1 for hypokalemia. Repeat BMP in am. Anusol for hemorrhoidal irritation. MOM PRN, daily Miralax and senna for bowel motivation Follow BP's. HCTZ is on hold. Hold statin given elevated liver enzymes. Continue regular home meds for chronic health problems. SCD's for DVT prophylaxis. Pt requests DNR code status. Care to return to Madie Sampson APRN on discharge. 05/29/17 Currently on day 2 of Rocephin. Escherichia coli in urine. Sensitivities pending. Blood cultures negative after 24 hours. Recheck CBC and basic metabolic profile tomorrow. Await urine culture results. Increase MiraLAX for constipation. Continue Dulcolax suppositories Change to inpatient status secondary to hypoxemia and urinary tract infection with pyelonephritis. 05/30/17 Continue Rocephin for urinary coverage of Ecoli - Day #3. Consult PT/OT to help improve functional status. Compazine added for nausea. Continue with bowel motivation. Add routine Senna plus at night and prn MOM. 05/31/17 Continue Rocephin for urinary coverage of Ecoli - day #4. Did well with therapy - will have nursing ambulate TID to help strength. Bowel moving - will stop routine Dulcolax suppositories. Possible discharge tomorrow if continues to do well. 06/01/17 Will d/c to home after today's dose of Rocephin infused. Continue cephalexin for 9 more days due to pyelonephritis. Continue with bowel motivation. Encourage increasing activities at home. F/U with Madie Sampson in 1 week for reevaluation. See orders for details
--- NOTE | 2017-06-01 11:16 | Discharge Summary ---
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 Hypokalemia (POA) - improved Osteoarthritis GERD without esophagitis OAB (overactive bladder) - Laboratory Labs: Admit Lab 05/28/17 13:01 WBC 17.9 H Hgb 14.5 Hct 43.3 MCV 94.5 Plt Count 300 Neutrophils % (Manual) 83.0 H Band Neutrophils % 4.0 Lymphocytes % (Manual) 11.0 L Admit Lab 05/28/17 13:01 Sodium 144 Potassium 3.5 L Chloride 100 Carbon Dioxide 33 H Anion Gap 11 BUN 14.0 Creatinine 0.7 GFR Calculation 81 Glucose 108 Calculated Osmolality 279 Total Bilirubin 0.40 AST 37 H ALT 55 H Total Protein 7.6 Albumin 4.0 Plasma Lactate 1.1 06/01/17 04:15 06/01/17 04:15 - Microbiology Microbiology 05/28/17 13:01 Peripheral/Iv Start Blood Culture - Preliminary No Growth After 3 Days 05/28/17 13:06 Peripheral/Iv Start Blood Culture - Preliminary No Growth After 3 Days 05/28/17 13:06 Urine, Voided (Cc/notcc) Urine Culture - Final Escherichia coli - Radiology Radiology: Date of Exam: 05/28/17 EXAM: CT renal wo con (stone marisa) Impression: 1. No renal or ureteral stones identified. 2. There is suggestion of mild asymmetric prominence of the left renal collecting system, pelvis, and ureter with mild left perinephric/periureteral stranding noted raising consideration for ascending urinary tract infection, although pyelonephritis cannot be determined by CT without intravenous contrast. History of Present Illness HPI: Patient is an 82 y.o. female who is accepted as a direct admission from Madie Sampson APRN for fever, UTI, abdominal pain and weakness. She has had dysuria, dizziness and constipation over the past few weeks. Her symptoms worsened over the weekend with fever of 100.0 at home. Her labs in the office revealed elevated WBC and urine consistent with infection. She reports she was able to have a small BM last night and the night before she had wateryl, incontinent stools which resulted after using laxatives. She still has some abdominal pain . KUB xrays from 05/23 and 05/24 revealed no evidence of SBO. She was also running lower BP's when seen last week so her HCTZ has been held. She reports she is having more swelling in her feet. She currently states she is still having some abdominal "soreness" but it is better than it has been. She doesn't have much of an appetite. Notes she has dysuria and urinary frequency. For complete details of the H&P refer to that document. Objective Vital signs: Temperature 97.4 F 06/01/17 07:28 Pulse Rate 70 06/01/17 07:28 Respiratory Rate 18 06/01/17 07:28 Blood Pressure 132/76 06/01/17 07:28 Pulse Oximetry 92 06/01/17 07:28 Height/Weight/BMI: Height 1.73 m Weight 69.1 kg Body Mass Index 22.6 Hospital Course This is a general summary of the patient's hospital course. For more details refer to the complete medical record. Hospital course: 05/28/17 Impression Pyelonephritis vs febrile cystitis Leukocytosis Hypokalemia Vasculitis - on prednisone 2.5mg qd. Mild transaminitis Hemorrhoids/anal irritation Constipation with abdominal pain - no evidence of SBO at this time Breast cancer, Right breast - (lumpectomy 1994 followed by chemo) Rosacea, unspecified GERD without esophagitis OAB (overactive bladder) Vaginal atrophy Colon polyps Migraine headache Hypertension Osteoarthritis Seborrheic dermatitis Traumatic blindness of right eye Plan Admit to observation under hospitalist service, Dr. Burnett attending. CBC, CMP, lactate, procalcitonin,UA and culture, blood culture x 2. CT renal stone protocol to r/o nephro/ureterolithiasis Rocephin 1 gm IV q 24 hours for infection - await urine C&S results and adjust antibiotic therapy as needed IVF's for hydration and maintenance and to replace potassium. Morphine IV PRN pain and Zofran 4mg PRN nausea Potassium x 1 for hypokalemia. Repeat BMP in am. Anusol for hemorrhoidal irritation. MOM PRN, daily Miralax and senna for bowel motivation Follow BP's. HCTZ is on hold. Hold statin given elevated liver enzymes. Continue regular home meds for chronic health problems. SCD's for DVT prophylaxis. Pt requests DNR code status. Care to return to Madie Sampson APRN on discharge. 05/29/17 Currently on day 2 of Rocephin. Escherichia coli in urine. Sensitivities pending. Blood cultures negative after 24 hours. Recheck CBC and basic metabolic profile tomorrow. Await urine culture results. Increase MiraLAX for constipation. Continue Dulcolax suppositories Change to inpatient status secondary to hypoxemia and urinary tract infection with pyelonephritis. 05/30/17 Continue Rocephin for urinary coverage of Ecoli - Day #3. Consult PT/OT to help improve functional status. Compazine added for nausea. Continue with bowel motivation. Add routine Senna plus at night and prn MOM. 05/31/17 Continue Rocephin for urinary coverage of Ecoli - day #4. Did well with therapy - will have nursing ambulate TID to help strength. Bowel moving - will stop routine Dulcolax suppositories. Possible discharge tomorrow if continues to do well. 06/01/17 Will d/c to home after today's dose of Rocephin infused. Continue cephalexin for 9 more days due to pyelonephritis. Continue with bowel motivation. Encourage increasing activities at home. F/U with Madie Sampson in 1 week for reevaluation. See orders for details Time spent with patient: discharge greater than 30 minutes DVT Prophylaxis: SCD's Discharge Plan - Med Rec/Dispo Referrals/Follow Up: Madie Sampson APRN [Family Provider] - 1 Week (Hospital follow up for UTI/ Pyelonephritis with Ecoli) Prescriptions: New cephALEXin [Cephalexin] 1 tab PO TID #27 tab Milk of Magnesia [Mom] 30 ml PO DAILY PRN #1 bottle PRN Reason: Constipation PEG 3350 17gm PACKET [Miralax] 17 gm PO TID PRN #1 bottle PRN Reason: Constipation Senna + Docusate [Senna Plus Tablet] 1 tab PO BID #1 bottle Hydrocodone/APAP 5/325 [Tye 5/325] 1 tab PO Q6H PRN #20 tab PRN Reason: Pain Continue Carvedilol 12.5 mg PO BIDWM #0 Pyridoxine HCl (Vitamin B6) [Vitamin B-6] 100 mg PO DAILY #0 Famotidine [Pepcid AC] 10 mg PO BID Oxybutynin Chloride 5 mg PO DAILY Omeprazole 40 mg PO ACB PRN PRN Reason: Acid Reflux Montelukast [Singulair] 10 mg PO HS Minocycline [Minocin] 100 mg PO BID PRN PRN Reason: Prn Orders Hydrocortisone 1% Cream [Cortizone-10 Cream] 1 applic TOP HS PRN PRN Reason: Prn Orders Fish Oil/Dha/Epa [Fish Oil 1,200 mg Fish Oil] 1,200 mg PO BIDWM Estradiol [Estrace] 1 applic VAGINAL 2XW Clobetasol 0.05% Cream [TEMOVATE Cream] 1 applic TOP BID PRN PRN Reason: Prn Orders Polyvinyl Alcohol/Povidone O/S [Refresh Classic] 1 drop EACH EYE BID Azelastine HCl 1 spray EA NOSTRIL HS #0 Vit A/Vit C/Vit E/Zinc/Copper [Preservision Areds Tablet] 1 tab PO BID Multivitamin [One Daily] 1 tab PO DAILY Ondansetron Odt [Zofran Po] 4 mg PO Q4-6HR PRN PRN Reason: Nausea Lactobacillus Acidophilus [Probiotic Acidophilus] 1 tab PO NOON Calcium 250 + D [Os Edward + D] 2 tab PO TID Pravachol (pravastatin) 20 mg tablet 20 mg PO DAILY #30 tab Advil (Ibuprofen) 200 mg tablet 200 mg PO BID PRN #0 tab PRN Reason: PAIN [id number] 50 mg-325 mg-40 mg capsule 1 cap PO TID PRN #40 cap PRN Reason: Pain prednisone 2.5 mg tablet 2.5 mg PO QAM #30 tab Norvasc (amlodipine) 10 mg tablet 10 mg PO HS #30 tab Discharge Instructions/Outpatient Orders: Provider Discharge Instructions Location: Determined By Patient - Disposition 01 Discharged Home, Self-Care - Attestation Attestation Narrative: 06/01/17 11:27 I have independently interviewed and examined patient prior to discharge. See my progress note from today for details. Medically stable for discharge to home.
[2017-06-01] MEDS ORDERED: CEFTRIAXONE 1 G in NS 100 ML IV ONE (11:28)
[2017-06-01 11:46] VITALS: BP 120/67; PULSE 67; RESP 16; TEMP 97.8; O2SAT 96
[2017-06-01] MEDS: LACTOBACILLUS (15B cfu) CAPSULE PO SCH (11:48)
== END 2017-06-01 13:50 | disposition home or self-care (01) | DRG 690 ==
LOC: MED → SUATTDRO 05-29 15:33
PROVIDERS: ADMIT Internal Medicine; ATTEND Hospitalist